=== PATIENT | male | born 1985 | race Asian ===

== ENCOUNTER 2018-11-10 20:07 | Emergency (ER) | payer OTHER ==
--- NOTE | 2018-11-10 20:22 | PDOC ---
Rapid Medical Evaluation Time Seen by Provider: 11/10/18 20:19 Medical Evaluation: 11/10/18 20:20 I have performed a brief in-person evaluation of this patient. The patient presents with a chief complaint of: Intermittent vertigo x 3 days, no MARTÍNEZ, n/v, tinnitus or URIs. Had similar episode 2 months ago that resolved after 2 days. No sig pmhx. Works a nurse in the ICU Pertinent physical exam findings:BP 139/104, HR 115, well davis and in NAD I have ordered the following:nothing The patient will proceed to the ED for further evaluation. Discharge Disposition - Diagnosis Vertigo - Referrals - Patient Instructions - Post Discharge Activity
[2018-11-10 20:28] VITALS: TEMP 98.4; BMI 37.2
--- NOTE | 2018-11-10 20:48 | PDOC ---
History of Present Illness - General Chief Complaint: Lightheaded Stated Complaint: HYPERTENSION Time Seen by Provider: 11/10/18 20:19 - History of Present Illness Initial Comments: 33yo M with no significant PMH presenting with dizziness. 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 For the past four days, he has felt intermittent episodes of room-spinning dizziness that last about 2-3 seconds at time. The sensation will come on all of a sudden. Denies headache, nausea, vomiting, or feeling like he's going to pass out. He has had this in the past, many years ago and also two months ago. The episode two months ago went away after a day or two on its own. When asked if he feels weak, he replies "a little." Denies fevers, chills, chest pain, shortness of breath, or abdominal pain. Past History - Past Medical History Allergies/Adverse Reactions: Allergies Allergy/AdvReac Type Severity Reaction Status Date / Time No Known Allergies Allergy Verified 11/10/18 21:08 Home Medications: Ambulatory Orders Carbamide Peroxide [Ear Drops] 15 ml OT BID 4 Days #1 bottle 11/10/18 Meclizine HCl [Antivert -] 25 mg PO BID 7 Days #14 tablet 11/10/18 Ondansetron HCl [Zofran] 4 mg PO BID PRN 7 Days #14 tablet 11/10/18 Anemia: No Asthma: No Cancer: No CVA: No COPD: No - Surgical History Cardiac Surgery: No Gastric Stapling: No GI Surgery: No Lung Surgery: No - Suicide/Smoking/Psychosocial Hx Smoking History: Never smoked Have you smoked in the past 12 months: No Information on smoking cessation initiated: No Hx Alcohol Use: No Drug/Substance Use Hx: No Review of Systems - Review of Systems Comments:: Constitutional: no fever, no chills HEENT: no throat pain, no dysphagia Cardiovascular: no chest pain, no palpitations Respiratory: no cough, no shortness of breath Gastrointestinal: no abdominal pain, no nausea Genitourinary: no dysuria, no frequency Musculoskeletal: no myalgia, no arthralgia Skin: no rash, no itching Neurologic: no headache, +dizziness *Physical Exam - Vital Signs Last Vital Signs Temp Pulse Resp BP Pulse Ox 98.4 F 115 H 20 139/104 H 98 11/10/18 20:22 11/10/18 20:22 11/10/18 20:22 11/10/18 20:22 11/10/18 20:22 - Physical Exam Comments: General: Awake, alert, and fully oriented, in no acute distress Head: No signs of trauma Eyes: PERRL, EOMI, sclera anicteric ENT: Moist mucus membranes Neck: Normal ROM, supple Lungs: Lungs clear, Normal breath sounds Cardio: Tachycardic, regular rhythm, S1 and S2 present Abdomen: Soft, nontender. No guarding, no rebound, no masses Extremities: Normal range of motion, Distal pulses present SKIN: Warm, Dry, normal turgor Neurologic: Cranial nerves II through XII intact. Normal speech, sensation, strength, coordination, and gait. No nystagmus noted. Moderate Sedation - Procedure Monitoring Vital Signs: Procedure Monitoring Vital Signs Temperature 98.4 F 11/10/18 20:22 Pulse Rate 115 H 11/10/18 20:22 Respiratory Rate 20 11/10/18 20:22 Blood Pressure 139/104 H 11/10/18 20:22 O2 Sat by Pulse Oximetry (%) 98 11/10/18 20:22 ED Treatment Course - LABORATORY CBC & Chemistry Diagram: 11/10/18 22:20 11/10/18 22:20 Medical Decision Making - Medical Decision Making 33yo M with no significant PMH presenting with intermittent dizziness. DDX including but not limited to peripheral vertigo, central vertigo, anemia, electrolyte imbalance Presentation consistent with peripheral vertigo. Will treat with 25 meclizine. Tachycardia noted. Ordered 1L NS. 11/10/18 21:17 Patient signed out to night team. 11/10/18 21:56 *DC/Admit/Observation/Transfer Diagnosis at time of Disposition: Vertigo - Discharge Dispostion Disposition: HOME Condition at time of disposition: Improved - Prescriptions Prescriptions: Carbamide Peroxide [Ear Drops] 15 ml OT BID 4 Days #1 bottle Meclizine HCl [Antivert -] 25 mg PO BID 7 Days #14 tablet Ondansetron HCl [Zofran] 4 mg PO BID PRN 7 Days #14 tablet PRN Reason: Nausea And/Or Vomiting - Referrals Referrals: Miguel Nevarez MD [Staff Physician] - - Patient Instructions Printed Discharge Instructions: DI for Vertigo Additional Instructions: You came to the ED for dizziness. Please use meclizine for the dizziness and zofran as needed for the nausea. Follow-up with your primary care doctor at your already scheduled appointment on Thursday to discuss this ED visit and to further evaluate your symptoms. RETURN if: your symptoms return uncontrolled with medicine, you have a severe headache, persistent vomiting, changes in vision, focal weakness, difficulty walking, or any other new or concerning symptoms. - Post Discharge Activity Forms/Work/School Notes: Back to Work
[2018-11-10 21:09] VITALS: BP 169/97; PULSE 112
[2018-11-10] MEDS ORDERED: SODIUM CHLORIDE 1,000 ML IV STA (21:23)
[2018-11-10] MEDS ORDERED: MECLIZINE HCL 25 MG TABLET (FP) PO ONE (21:23)
[2018-11-10] MEDS ORDERED: MECLIZINE HCL 25 MG TABLET (FP) ONE (21:47)
[2018-11-10 22:32] LABS: BASO % 0.4 % (0-2.0); EOS % 0.2 % (0-4.5); HEMATOCRIT 47.1 % (35.4-49); HEMOGLOBIN 16.3 GM/dL (11.7-16.9); LYMPH % 14.5 % (8-40); MCH 30.2 pg (25.7-33.7); MCHC 34.5 g/dl (32.0-35.9); MEAN CELL VOLUME 87.4 fl (80-96); MEAN PLT VOLUME 7.2 fl (7.5-11.1); MONO % 4.4 % (3.8-10.2); NEUT % 80.5 % (42.8-82.8); PLATELET COUNT 430 K/MM3 (134-434); RBC 5.39 M/mm3 (4.00-5.60); RDW 13.2 % (11.9-15.9); WHITE BLOOD COUNT 15.3 K/mm3 (4.0-10.0)
[2018-11-10 23:09] LABS: ALBUMIN 4.5 g/dl (3.4-5.0); ALK PHOS 96 U/L (45-117); ANION GAP 6 MMOL/L (8-16); BILIRUBIN,TOTAL 0.2 mg/dL (0.2-1); BLOOD UREA NITROGEN 15 mg/dL (7-18); CALCIUM 9.6 mg/dL (8.5-10.1); CHLORIDE 103 mmol/L (98-107); CO2 27 mmol/L (21-32); CREATININE 1.1 mg/dL (0.55-1.3); GLUCOSE,RANDOM 112 mg/dL (74-106); POTASSIUM 4.3 mmol/L (3.5-5.1); SGOT/AST 28 U/L (15-37); SGPT/ALT 45 U/L (13-61); SODIUM 136 mmol/L (136-145); TOT PROT 9.3 g/dl (6.4-8.2)
--- NOTE | 2018-11-10 23:27 | PDOC ---
*Physical Exam - Vital Signs Last Vital Signs Temp Pulse Resp BP Pulse Ox 98.4 F 112 H 20 169/97 98 11/10/18 20:22 11/10/18 20:57 11/10/18 20:22 11/10/18 20:57 11/10/18 20:22 ED Treatment Course - LABORATORY CBC & Chemistry Diagram: 11/10/18 22:20 11/10/18 22:20 - ADDITIONAL ORDERS Additional order review: Laboratory Results 11/10/18 22:20 Sodium 136 Potassium 4.3 Chloride 103 Carbon Dioxide 27 Anion Gap 6 L BUN 15 Creatinine 1.1 Creat Clearance w eGFR > 60 Random Glucose 112 H Calcium 9.6 Total Bilirubin 0.2 AST 28 ALT 45 Alkaline Phosphatase 96 Total Protein 9.3 H Albumin 4.5 11/10/18 22:20 RBC 5.39 MCV 87.4 MCHC 34.5 RDW 13.2 MPV 7.2 L Neutrophils % 80.5 Lymphocytes % 14.5 Monocytes % 4.4 Eosinophils % 0.2 Basophils % 0.4 - Medications Given in the ED: ED Medications Discontinued Medications Generic Name Dose Route Start Last Admin Trade Name Freq PRN Reason Stop Dose Admin Sodium Chloride 1,000 mls @ 1,000 mls/hr 11/10/18 21:23 11/10/18 22:28 Normal Saline - IV 11/10/18 22:22 1,000 mls/hr ASDIR STA Administration Meclizine HCl 25 mg 11/10/18 21:23 11/10/18 21:51 Antivert - PO 11/10/18 21:24 25 mg ONCE ONE Administration Medical Decision Making - Medical Decision Making 33 year old male presenting with vertiginous symptoms with improvement with meclizine. Will DC with meclizine and zofran + follow up with ENT. 11/10/18 23:22 *DC/Admit/Observation/Transfer Diagnosis at time of Disposition: Vertigo - Discharge Dispostion Disposition: HOME Condition at time of disposition: Improved Decision to Admit order: No - Prescriptions Prescriptions: Carbamide Peroxide [Ear Drops] 15 ml OT BID 4 Days #1 bottle Meclizine HCl [Antivert -] 25 mg PO BID 7 Days #14 tablet Ondansetron HCl [Zofran] 4 mg PO BID PRN 7 Days #14 tablet PRN Reason: Nausea And/Or Vomiting - Referrals Referrals: Miguel Nevarez MD [Staff Physician] - - Patient Instructions Printed Discharge Instructions: DI for Vertigo Additional Instructions: You came to the ED for dizziness. Please use meclizine for the dizziness and zofran as needed for the nausea. Follow-up with your primary care doctor at your already scheduled appointment on Thursday to discuss this ED visit and to further evaluate your symptoms. RETURN if: your symptoms return uncontrolled with medicine, you have a severe headache, persistent vomiting, changes in vision, focal weakness, difficulty walking, or any other new or concerning symptoms. - Post Discharge Activity
--- NOTE | 2018-11-10 23:28 | PDOC ---
Attending Attestation - Resident Resident Name: Luzma Davis - ED Attending Attestation I have performed the following: I have examined & evaluated the patient, The case was reviewed & discussed with the resident, I agree w/resident's findings & plan, Exceptions are as noted - HPI HPI: 11/10/18 23:22 33 yo male h/o positional vertigo many years ago, and few months ago, here today c/o dizziness, vertigo. started 3 days ago. worse with turning and rolling over in bed. no tinnitus. no n/v. did see ENT many years ago. has not taken anything for dizziness prior to arrival. has had mild nasal congestion right side. no cough no f/c no focal weakness no change to speech. no difficulty with gait. - Physicial Exam PE: 11/10/18 23:24 awake alert lungs clear bilaterally, ears bilaterally impactred wtih cerumen. bilat nasal turbinate enlargement . boggy. heart rrr no mrg abd soft nt nd. ext wwp. nuero alert oriented x 3. finger to nose normal alt hand movement normal . gait normal. CN II - XII intact. positive augustina hallpike to right. skin warm and dry no rash. 11/10/18 23:28 - Medical Decision Making 11/10/18 23:25 33 yo male here with positional vertigo, plan meclizine. zofran, ivf. will obtain cbc cmp r/o electrolyte abnormality or anemia. recommed ear wax drops, ENT follow scheduled for 2 days. labs normal pt feels improved. dc home with meclzine and zofran.
== END 2018-11-10 23:42 | disposition home or self-care (01) ==
LOC: JER 20:07
PROC: 3E0337Z Introduction of Electrolytic and Water Balance Substance into Peripheral Vein, Percutaneous Approach (ICD-10-PCS; principal; 2018-11-10)
DX: R42 Dizziness and giddiness (principal)
CPT/HCPCS: 36415; 80053; 85025; 99281-25; J7030